=== PATIENT | male | born 1990 | race Caucasian/White ===

== ENCOUNTER 2018-02-19 01:52 | Emergency (ER) | payer OTHER ==
[2018-02-19] MEDS: MORPHINE 10 MG/ML 1ML VIAL (J2270) IV (03:11)
[2018-02-19] MEDS: NS 1,000 ML IV (03:12)
[2018-02-19 03:13] LABS: BASO % 0.4 % (0.0-1.0); EOS # 0.1 10^3/uL (0.0-0.50); EOS % 1.1 % (0.0-3.0); HEMATOCRIT 42.1 % (42.0-52.0); HEMOGLOBIN 14.6 g/dl (13.5-17.5); IMMATURE GRANULOCYTE % 0.4 % (0-3.0); LYMPH # 1.7 10^3/uL (1.5-6.5); LYMPH % 16.7 % (24.0-44.0); MEAN CORPUSCULAR HEMOGLOBIN 32.3 pg (27.0-33.0); MEAN CORPUSCULAR HGB CONC 34.7 g/dl (32.0-36.5); MEAN CORPUSCULAR VOLUME 93.1 fl (80.0-96.0); MONO # 0.9 10^3/uL (0.0-0.8); MONO % 8.6 % (0.0-5.0); NEUTROPHILS # 7.5 10^3/uL (1.8-7.7); NEUTROPHILS % 72.8 % (36.0-66.0); PLATELET COUNT, AUTOMATED 282 10^3/uL (150-450); RED BLOOD COUNT 4.52 10^6/uL (4.30-6.10); RED CELL DISTRIBUTION WIDTH 13.3 % (11.5-14.5); WHITE BLOOD COUNT 10.3 10^3/uL (4.0-10.0)
[2018-02-19 03:13] LABS: IONIZED CALCIUM 4.8 MG/DL (4.5-5.3)
[2018-02-19] MEDS: AMPICILLIN SOD/SULBACTAM SOD 3 GM in D5W MINI-BAG PLUS 100 ML IV (03:15)
[2018-02-19 03:45] LABS: ANION GAP 5 MEQ/L (8-16); BLOOD UREA NITROGEN 20 MG/DL (7-18); CALCIUM LEVEL 8.7 MG/DL (8.5-10.1); CARBON DIOXIDE LEVEL 29 MEQ/L (21-32); CHLORIDE LEVEL 108 MEQ/L (98-107); CPK CREATINE PHOSPHOKINASE 188 U/L (39-308); GLOMERULAR FILTRATION RATE > 60.0 (>60); GLUCOSE, FASTING 95 MG/DL (70-100); POTASSIUM SERUM 4.5 MEQ/L (3.5-5.1); SODIUM LEVEL 142 MEQ/L (136-145)
[2018-02-19] MEDS: NORCO 5/325MG TABLET (BULK FOR ED) PO (07:22)
== END 2018-02-19 07:25 | disposition home or self-care (01) ==
LOC: M ED 01:52
DX: S50.861A Insect bite (nonvenomous) of right forearm, initial encounter (principal); W57.XXXA Bitten or stung by nonvenomous insect and other nonvenomous arthropods, initial encounter; Y92.138 Other place on military base as the place of occurrence of the external cause
CPT/HCPCS: J2270

== ENCOUNTER 2020-04-30 15:53 | Emergency (ER) | payer OTHER ==
[~2020-04-30] VITALS: Ht 180.3 cm; Wt 100.1 kg
[~2020-04-30 15:53] MED LIST: AUGM500T34 PO
[2020-04-30] MEDS ORDERED: ALBUTEROL SULFATE 2.5 MG/0.5 ML INH NEB SOLN NEB ONE (17:30)
[2020-04-30] MEDS ORDERED: NS 1,000 ML IV ONE (17:30)
[2020-04-30] MEDS ORDERED: METOCLOPRAMIDE INJ 10MG/2ML VIAL (J2765 PER 1) IV ONE (17:30)
[2020-04-30] MEDS ORDERED: KETOROLAC 30 MG/ML 1ML VIAL IV ONE (17:30)
[2020-04-30 18:17] LABS: BASO % 0.5 % (0.0-1.0); EOS # 0.1 10^3/uL (0.0-0.5); EOS % 0.7 % (0.0-3.0); HEMATOCRIT 41.1 % (42.0-52.0); HEMOGLOBIN 14.3 g/dl (13.5-17.5); LYMPH # 1.7 10^3/uL (1.5-5.0); LYMPH % 20.3 % (24.0-44.0); MEAN CORPUSCULAR HEMOGLOBIN 31.9 pg (27.0-33.0); MEAN CORPUSCULAR HGB CONC 34.8 g/dl (32.0-36.5); MEAN CORPUSCULAR VOLUME 91.7 fl (80.0-96.0); MONO # 0.5 10^3/uL (0.0-0.8); MONO % 5.7 % (0.0-5.0); NEUTROPHILS # 6.2 10^3/uL (1.5-8.5); NEUTROPHILS % 72.5 % (36.0-66.0); PLATELET COUNT, AUTOMATED 345 10^3/uL (150-450); RED BLOOD COUNT 4.48 10^6/uL (4.30-6.10); WHITE BLOOD COUNT 8.6 10^3/uL (4.0-10.0)
[2020-04-30] MEDS ORDERED: ISOVUE-370 76% 100ML VIAL As Ordered ONE (18:25)
[2020-04-30 18:47] LABS: ERYTHROCYTE SEDIMENTATION RATE 3 mm/hr (0-15)
[2020-04-30 18:48] LABS: ALT/SGPT 30 U/L (12-78); BILIRUBIN,DIRECT 0.2 MG/DL (0.0-0.2); C REACTIVE PROTEIN QUANTITATIV < 0.30 MG/DL (0.00-0.30); CK-MB VALUE MASS 2.3 NG/ML (<3.6); CPK CREATINE PHOSPHOKINASE 208 U/L (39-308); LIPASE 97 U/L (73-393); MAGNESIUM LEVEL 2.5 MG/DL (1.8-2.4); MB/CK RELATIVE INDEX 1.11 (< OR =4); TOTAL PROTEIN 6.9 GM/DL (6.4-8.2); TROPONIN I < 0.02 NG/ML (< 0.10)
--- NOTE | 2020-04-30 18:57 | REPVR ---
PROCEDURE INFORMATION: Exam: CT Head Without Contrast Exam date and time: 04/30/2020 6:28 PM Age: 29 years old Clinical indication: Pain; Headache; Additional info: Severe DUNNE daily, with changes in vision TECHNIQUE: Imaging protocol: Computed tomography of the head without contrast. Radiation optimization: All CT scans at this facility use at least one of these dose optimization techniques: automated exposure control; mA and/or kV adjustment per patient size (includes targeted exams where dose is matched to clinical indication); or iterative reconstruction. COMPARISON: No relevant prior studies available. FINDINGS: Brain: No hemorrhage. Unremarkable white matter for the patient's age. No mass effect. No evolving territorial infarct. Cerebral ventricles: No ventriculomegaly. Bones/joints: Unremarkable. No acute fracture. Paranasal sinuses: Trace left maxillary sinus mucosal thickening. Mastoid air cells: Visualized mastoid air cells are well aerated. Soft tissues: Unremarkable. IMPRESSION: No acute intracranial abnormality seen. Electronically signed by: Cristina Sanders On 04/30/2020 18:57:17 PM
--- NOTE | 2020-04-30 19:06 | REPVR ---
PROCEDURE INFORMATION: Exam: CT Angiography Chest With Contrast Exam date and time: 04/30/2020 6:28 PM Age: 29 years old Clinical indication: Chest pain; Additional info: SOB x 5 months, decreased exercise tolerance, and left mid chest pain. TECHNIQUE: Imaging protocol: Computed tomographic angiography of the chest with intravenous contrast. 3D rendering (Not supervised by radiologist): MIP and/or 3D reconstructed images were created by the technologist. Radiation optimization: All CT scans at this facility use at least one of these dose optimization techniques: automated exposure control; mA and/or kV adjustment per patient size (includes targeted exams where dose is matched to clinical indication); or iterative reconstruction. Contrast material: ISO 370; Contrast volume: 75 ml; Contrast route: INTRAVENOUS (IV); COMPARISON: No relevant prior studies available. FINDINGS: Pulmonary arteries: No pulmonary embolism. Aorta: The thoracic aorta is intact and patent. There is no thoracic aortic aneurysm, pseudoaneurysm, penetrating atherosclerotic ulcer, intramural hematoma, or dissection. Great vessels off aortic arch: The brachiocephalic artery, imaged proximal portions of the common carotid arteries, imaged proximal portions of the vertebral arteries, and subclavian arteries are intact. No stenosis or occlusion of these vessels is noted. Tracheobronchial tree: Intact and patent. Lungs: The lungs are clear. There is no lung consolidation, pulmonary infarct, or mass. No emphysematous changes or interstitial lung disease is noted. Pleural space: Normal. No pneumothorax or pleural effusion. Heart: No cardiomegaly or pericardial effusion. The ratio of the diameter of the right ventricle to the diameter of the left ventricle measures less than 1, which is within normal limits and there is no evidence for a right ventricular strain. Mediastinal space: No mediastinal mass, fluid collection, or pneumomediastinum. Lymph nodes: No enlarged lymph nodes. Gallbladder and bile ducts: No calcified gallstones are noted. No gallbladder wall thickening, pericholecystic fluid, or pericholecystic inflammatory changes are identified. No dilation of the bile ducts is noted. No calcified stones are seen in the common bile duct. Bones/joints: There is no fracture or dislocation. No suspicious osteolytic or osteoblastic lesion. Soft tissues: Unremarkable. No soft tissue fluid collection. IMPRESSION: No acute findings in the chest. No pulmonary embolism. Electronically signed by: Christopher Negron On 04/30/2020 19:06:09 PM
[2020-04-30] MEDS ORDERED: predniSONE 20 MG TAB PO ONE (20:30)
[2020-04-30] MEDS ORDERED: AMITRIPTYLINE 25 MG TAB PO STA (20:30)
[2020-04-30] MEDS ORDERED: PRED10TA2 PO (20:34)
[2020-04-30] MEDS ORDERED: KEFL500C17 PO (20:34)
[2020-04-30] MEDS ORDERED: AMIT25TA PO (20:34)
[2020-04-30] MEDS ORDERED: PROAAER10 INH (20:34)
[2020-04-30] MEDS ORDERED: CEPHALEXIN 500 MG CAP PO ONE (20:45)
[2020-04-30 20:46] VITALS: BP 129/76
--- NOTE | 2020-05-01 08:32 | ECGEPIP ---
[facility] - ED Test Date: 2020-04-30 Pat Name: REMI LIU Department: Room: - Gender: Male [employer] Clerk: kenia : 1990 Requested By: BLANE Ho PA-C Order Number: [id number] Reading MD: Elma Gonzalez Measurements Intervals Kelly Rate: 74 P: 65 MI: 153 QRS: 55 QRSD: 91 T: 46 QT: 395 QTc: 439 Interpretive Statements SINUS RHYTHM No prior Electronically Signed on 05-01-2020 8:32:24 EDT by Elma Gonzalez
== END 2020-04-30 21:04 | disposition home or self-care (01) ==
LOC: M ED 15:53
DX: L08.9 Local infection of the skin and subcutaneous tissue, unspecified (principal); G43.909 Migraine, unspecified, not intractable, without status migrainosus; R06.02 Shortness of breath; R07.89 Other chest pain; R79.89 Other specified abnormal findings of blood chemistry; F17.200 Nicotine dependence, unspecified, uncomplicated; Z79.899 Other long term (current) drug therapy
CPT/HCPCS: 70450; 71275; 80047; 80076; 82550; 82553; 83605; 83690; 83735; 84484; 85025; 85652; 86140; 93005; 94640; 96361; 96374; 96375; 99284; J1885; J2765; Q9967